=== PATIENT | female | born 1990 | race Caucasian/White ===

== ENCOUNTER 2020-09-27 15:53 | Outpatient (REF) | payer BC, SELFPAY ==
--- NOTE | 2020-09-27 16:04 | XR_ITS ---
EXAMINATION: XR FOOT, RIGHT CLINICAL INFORMATION: Pain right foot. COMPARISON: None. TECHNIQUE: AP, lateral, and oblique views of the right foot. FINDINGS: Bony mineralization is normal. There is no acute or healing fracture, dislocation, or destructive process. No joint narrowing or erosive change. No hallux valgus. Subtalar joint is unremarkable. The retrocalcaneal recess is preserved. XR/XR foot RT min 3V IMPRESSION: Normal right foot.
== END 2020-09-27 15:54 | disposition home or self-care (01) ==
LOC: HO.XRAY 15:53
PROVIDERS: Visit Provider Hospitalist
DX: M79.671 Pain in right foot (principal)
CPT/HCPCS: 73630

== ENCOUNTER 2021-04-09 15:04 | Outpatient (REF) | payer BC, SELFPAY ==
[2021-04-10 00:58] LABS: CT PCR NOT DETECTED (Not Detect.); NG PCR NOT DETECTED (Not Detect.)
[2021-04-10 08:35] LABS: BV Int Neg Control Negative (Negative); BV Int Pos Control Positive (Positive)
== END 2021-04-09 15:05 | disposition home or self-care (01) ==
LOC: HO.LAB 15:04
PROVIDERS: PCP Family Medicine; Visit Provider Advanced Practice Midwife
DX: Z01.419 Encounter for gynecological examination (general) (routine) without abnormal findings (principal); Z11.3 Encounter for screening for infections with a predominantly sexual mode of transmission; Z20.2 Contact with and (suspected) exposure to infections with a predominantly sexual mode of transmission
CPT/HCPCS: 87480; 87491; 87510; 87591; 87660; 88142

== ENCOUNTER 2021-05-01 09:00 | Outpatient (RCR) | payer BC, SELFPAY ==
--- NOTE | 2021-04-04 10:22 | MHC.PT.EP ---
[facility] [employer] Office [place] Office [place] Office [address] [phone] F: [phone] F: [phone] F: [phone] F: [phone] Physical Therapy Plan of Care Date of Evaluation: Date of Surgery: Diagnosis: neck/shoulder/trapezius pain. Assessment: Patient is a 30 year old R handed female who presents with s/s consistent with neck/trap strain/pain. Onset was insidious with no trauma. 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 Patient past medical history is unremarkable. Current impairments include pain, ROM, posture, strength, activity tolerance and functional mobility. Functional limitations include decreased ability to sleep, lift, carry, push, pull, and perform weight bearing activities.. Patient is motivated with good rehab potential. Skilled PT will address impairments and functional limitations in order to achieve goals. 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 Manual therapy to restore motion and function. Therapeutic exercise to improve strength and flexibility. Neuromuscular re-education for posture and balance. Therapeutic activities to return to functional activities of daily living. Electronically signed by: Joseph Nieves PT Please sign and return to therapist. Thank you for your referral.
--- NOTE | 2021-08-14 13:45 | MHC.PT.DC ---
[facility] [place] Office [place] Office [place] Office [address] [place] [address] [address] [phone] F: [phone] F: [phone] F: [phone] F: [phone] Physical Therapy Discharge Report Diagnosis: neck/shoulder/trapezius pain. Date of Surgery: Date of Evaluation: 04/04/21 Date of Discharge: 06/30/21 Treatments to Date: 8 Cancellations to Date: 0 No Shows to Date: 0 Discharge Status: Independent with HEP Discharge Summary: Pt with good ST mechanics with wall pounds, symmetricl. She will return to work on and keep up with HEP independently. We will keep chart open for 30 days then d/c at that time if pt is able to manage independently. Patient is a 30 year old R handed female who presents with s/s consistent with neck/trap strain/pain. Onset was insidious with no trauma. 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 Patient past medical history is unremarkable. Current impairments include pain, ROM, posture, strength, activity tolerance and functional mobility. Functional limitations include decreased ability to sleep, lift, carry, push, pull, and perform weight bearing activities.. Patient is motivated with good rehab potential. Skilled PT will address impairments and functional limitations in order to achieve goals. Electronically signed by: Joseph Nieves, PT Please sign and return to therapist. Thank you for your referral.
== END 2021-08-14 13:46 | disposition home or self-care (01) ==
LOC: HO.PTCHIC 09:00
PROVIDERS: PCP Family Medicine; Visit Provider Family Medicine
DX: S46.811D Strain of other muscles, fascia and tendons at shoulder and upper arm level, right arm, subsequent encounter (principal)
CPT/HCPCS: 97110; 97140; 97161

== ENCOUNTER 2021-08-09 18:19 | Outpatient (REF) | payer BC, SELFPAY ==
[2021-08-09 19:12] LABS: Influenza A PCR NEGATIVE (Negative); Influenza B PCR NEGATIVE (Negative); Resp Syncy Virus RNA Qual PCR NEGATIVE (Negative); SARS COV2 PCR INHOUSE NEGATIVE (Negative)
== END 2021-08-09 18:20 | disposition home or self-care (01) ==
LOC: HO.LNP 18:19
PROVIDERS: Visit Provider Family Medicine
DX: Z20.822 Contact with and (suspected) exposure to COVID-19 (principal); R05.9 Cough, unspecified
CPT/HCPCS: 0241U

== ENCOUNTER 2021-08-16 16:40 | Outpatient (REF) | payer BC, SELFPAY ==
--- NOTE | ~2021-08-16 | XR_ITS ---
EXAMINATION: XR CHEST CLINICAL INFORMATION: Cough. COMPARISON: None TECHNIQUE: 2 views of the chest were obtained. FINDINGS: No significant abnormality is noted involving the heart, lungs, mediastinum, bony thorax or soft tissues. XR/XR chest 2V IMPRESSION: Unremarkable chest examination.
== END 2021-08-16 16:41 | disposition home or self-care (01) ==
LOC: HO.HMGCX 16:40
PROVIDERS: Visit Provider Family Medicine
DX: R05.9 Cough, unspecified (principal)
CPT/HCPCS: 71046

== ENCOUNTER 2021-09-21 07:32 | Outpatient (REF) | payer BC, SELFPAY ==
[2021-09-21 10:59] LABS: MANUAL DIFF FLAG NO
[2021-09-21 11:00] LABS: Basophils Percent Auto 0.4 % (0-2); Eosinophils Absolute Auto 0.1 X10*3/uL (0.0-0.4); Eosinophils Percent Auto 1.2 % (0-4); Hemoglobin 13.3 g/dl (12.0-16.0); Imm Gran Abs Auto 0.01 X10*3/uL (0.00-0.03); Imm Gran Pct Auto 0.1 % (0.0-0.4); Lymphocytes Absolute Auto 2.7 X10*3/uL (1.2-4.9); Lymphocytes Percent Auto 40.7 % (20-40); Mean Corpuscular HGB Conc 34.1 g/dl (31.0-35.0); Mean Corpuscular Hemoglobin 31.4 pg (27.0-33.0); Mean Corpuscular Volume 92.2 fL (80.0-98.0); Mean Platelet Volume 10.9 fL (9.4-12.3); Monocytes Absolute Auto 0.4 X10*3/uL (0.1-1.2); Monocytes Percent Auto 5.5 % (2-11); Neutrophils Absolute Auto 3.5 x10*3/uL (2.0-8.3); Neutrophils Percent Auto 52.1 % (45-73); Platelet Count 208 X10*3/uL (160-400); Red Blood Count 4.23 X10*6/uL (4.20-5.50); Red Cell Distribution Width 10.8 % (11.0-16.0); White Blood Count 6.7 X10*3/uL (4.8-10.8)
[2021-09-21 11:31] LABS: Alanine Aminotransferase 20 U/L (0-31); Alkaline Phosphatase 71 U/L (39-117); Anion Gap 10 (12-20); Aspartate Amino Transferase 17 U/L (5-31); Bilirubin Total 0.9 mg/dL (0.0-1.0); Blood Urea Nitrogen 12 mg/dL (9-16); Calcium 9.1 mg/dL (8.4-10.2); Carbon Dioxide 25 mmol/L (22-29); Chloride 108 mmol/L (96-108); Cholesterol 129 mg/dL; Estimated Glomerular Filt Rate > 60; Glucose Fasting 82 mg/dL (60-99); HDL Cholesterol 47 mg/dL; LDL Cholesterol Calculated 68 mg/dl; Potassium 3.8 mmol/L (3.3-5.1); Sodium 139 mmol/L (135-145); Total Protein 6.4 g/dL (6.5-8.0); Triglycerides 70 mg/dL
[2021-09-21 11:54] LABS: TSH reflex Free T4 1.52 uIU/mL (0.32-4.0)
== END 2021-09-21 07:33 | disposition home or self-care (01) ==
LOC: HO.WFDLDS 07:32
PROVIDERS: Visit Provider Family Medicine
DX: Z00.00 Encounter for general adult medical examination without abnormal findings (principal)
CPT/HCPCS: 36415; 80053; 80061; 84443; 85025

== ENCOUNTER 2022-11-08 07:37 | Outpatient (REF) | payer BC, SELFPAY ==
[2022-11-08 11:24] LABS: MANUAL DIFF FLAG NO
[2022-11-08 11:33] LABS: Basophils Absolute Auto 0.1 X10*3/uL (0.0-0.2); Eosinophils Absolute Auto 0.3 X10*3/uL (0.0-0.4); Eosinophils Percent Auto 3.5 % (0-4); Hematocrit 40.1 % (37.0-47.0); Hemoglobin 13.6 g/dl (12.0-16.0); Imm Gran Abs Auto 0.01 X10*3/uL (0.00-0.03); Imm Gran Pct Auto 0.1 % (0.0-0.4); Lymphocytes Absolute Auto 2.8 X10*3/uL (1.2-4.9); Lymphocytes Percent Auto 36.9 % (20-40); Mean Corpuscular HGB Conc 33.9 g/dl (31.0-35.0); Mean Corpuscular Hemoglobin 31.6 pg (27.0-33.0); Mean Platelet Volume 10.8 fL (9.4-12.3); Monocytes Absolute Auto 0.5 X10*3/uL (0.1-1.2); Monocytes Percent Auto 6.7 % (2-11); Neutrophils Percent Auto 51.8 % (45-73); Platelet Count 228 X10*3/uL (160-400); Red Blood Count 4.31 X10*6/uL (4.20-5.50); Red Cell Distribution Width 10.8 % (11.0-16.0); White Blood Count 7.7 X10*3/uL (4.8-10.8)
[2022-11-08 11:57] LABS: Alanine Aminotransferase 23 U/L (0-31); Alkaline Phosphatase 85 U/L (39-117); Anion Gap 10 (12-20); Aspartate Amino Transferase 19 U/L (5-31); Bilirubin Total 1.2 mg/dL (0.0-1.0); Blood Urea Nitrogen 14 mg/dL (9-16); Calcium 9.1 mg/dL (8.4-10.2); Carbon Dioxide 27 mmol/L (22-29); Chloride 107 mmol/L (96-108); Cholesterol 176 mg/dL; Estimated Glomerular Filt Rate > 60; Glucose Fasting 82 mg/dL (60-99); HDL Cholesterol 54 mg/dL; LDL Cholesterol Calculated 108 mg/dl; Potassium 4.2 mmol/L (3.3-5.1); Sodium 140 mmol/L (135-145); Total Protein 6.4 g/dL (6.5-8.0); Triglycerides 73 mg/dL
[2022-11-08 12:14] LABS: TSH reflex Free T4 1.84 uIU/mL (0.32-4.0)
[2022-11-08 12:37] LABS: Appearance Urine Clear; Color Urine Yellow; Glucose Urine UA Negative (Negative); Leukocyte Esterase Urine Negative (Negative); Nitrite Urine Negative (Negative); PH 5.5 (5.0-9.0); UMIC TRIGGER UA YES; Urine Blood Moderate (2+) (Negative); Urine Ketones Negative (Negative); Urine Protein Negative (Neg-Trace)
[2022-11-08 13:07] LABS: Bacteria Urine None Seen (None Seen); Hyaline Casts Urine 0-2 /LPF (0-2); Squamous Epithelial Cell Urine 0-2 /HPF (0-2); WBC Urine 0-5 /HPF (0-5)
== END 2022-11-08 07:38 | disposition home or self-care (01) ==
LOC: HO.WFDLDS 07:37
PROVIDERS: Visit Provider Family Medicine
DX: Z00.00 Encounter for general adult medical examination without abnormal findings (principal)
CPT/HCPCS: 36415; 80053; 80061; 81001; 81003; 84443; 85025

== ENCOUNTER → 2023-03-10 15:03 | Outpatient (BNVA) | payer BC, SELFPAY | PROVIDERS: PCP Family Medicine; Visit Provider Advanced Practice Midwife | DX: N92.6 Irregular menstruation, unspecified (principal); Z31.69 Encounter for other general counseling and advice on procreation | CPT/HCPCS: 81025 ==

== ENCOUNTER → 2023-08-19 09:23 | Outpatient (BNVA) | payer OTHER, SELFPAY | PROVIDERS: PCP Family Medicine; Visit Provider Physician Assistant Medical | DX: S43.401A Unspecified sprain of right shoulder joint, initial encounter (principal); W01.0XXA Fall on same level from slipping, tripping and stumbling without subsequent striking against object, initial encounter | CPT/HCPCS: 99203 ==

== ENCOUNTER → 2023-08-27 14:34 | Outpatient (BNVA) | payer OTHER, SELFPAY | PROVIDERS: PCP Family Medicine; Visit Provider Physician Assistant Medical | DX: S43.401A Unspecified sprain of right shoulder joint, initial encounter (principal); W01.0XXA Fall on same level from slipping, tripping and stumbling without subsequent striking against object, initial encounter | CPT/HCPCS: 99213 ==

== ENCOUNTER → 2023-09-15 15:16 | Outpatient (BNVA) | payer OTHER, SELFPAY | PROVIDERS: PCP Family Medicine; Visit Provider Physician Assistant Medical | DX: S43.401D Unspecified sprain of right shoulder joint, subsequent encounter (principal); W01.0XXD Fall on same level from slipping, tripping and stumbling without subsequent striking against object, subsequent encounter | CPT/HCPCS: 99213 ==

== ENCOUNTER → 2023-09-29 15:03 | Outpatient (BNVA) | payer OTHER, SELFPAY | PROVIDERS: PCP Family Medicine; Visit Provider Physician Assistant Medical | DX: S43.401D Unspecified sprain of right shoulder joint, subsequent encounter (principal); W01.0XXA Fall on same level from slipping, tripping and stumbling without subsequent striking against object, initial encounter | CPT/HCPCS: 99213 ==

== ENCOUNTER 2023-10-10 19:36 | Outpatient (REF) | payer OTHER, SELFPAY ==
--- NOTE | ~2023-10-10 | MR_ITS ---
EXAMINATION: MR SHOULDER WITHOUT CONTRAST, RIGHT CLINICAL INFORMATION: Right shoulder pain, swelling, limited range of motion following a fall on 08/18/2023. COMPARISON: None available. TECHNIQUE: MRI of the shoulder without contrast was performed on a high-field scanner. FINDINGS: ROTATOR CUFF: Intact. No muscle atrophy or fatty infiltration. BICEPS: Trace fluid within the proximal long head biceps tendon sheath which could represent normal variation versus minimal tenosynovitis. No transverse tendon tear or tendon retraction. CORACOACROMIAL ARCH: The undersurface of the acromion is flat with no subacromial spur. Minimal acromioclavicular arthrosis. LABRUM/CAPSULE: No labral tear. Intact joint capsule. GLENOHUMERAL JOINT/MARROW: Unremarkable. MR/MR shoulder RT wo con IMPRESSION: 1. Trace fluid within the proximal long head biceps tendon sheath which could represent normal variation versus minimal tenosynovitis. No transverse tendon tear or tendon retraction. 2. Minimal acromioclavicular arthrosis. 3. No rotator cuff or labral tear.
== END 2023-10-10 19:37 | disposition home or self-care (01) ==
LOC: HO.MRI 19:36
PROVIDERS: PCP Family Medicine; Visit Provider Internal Medicine
DX: M25.511 Pain in right shoulder (principal)
CPT/HCPCS: 73221

== ENCOUNTER 2023-10-16 15:00 | Outpatient (RCR) | payer OTHER, SELFPAY ==
--- NOTE | 2023-09-09 15:52 | MHC.PT.EP ---
[facility] [place] Office [place] Office [place] Office [address] [phone] F: [phone] F: [phone] F: [phone] F: [phone] Physical Therapy Plan of Care Date of Evaluation: 09/09/23 Date of Surgery: n/a Diagnosis: R shoulder sprain Assessment: Patient is a 33 year old female presenting to PT with complaints of pain in her R shoulder. Pt reports onset of pain began 08/18/2023 due to falling on her arm at work. She presents today with impairments in pain, ROM, strength, posture. 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 Clinical presentation today is most consistent with signs and sx associated with R shoulder pain and pt will benefit from skilled PT 2 week x 4 weeks to address the following problems and impairments noted upon evaluation: pain, ROM, strength, posture. These problems limit the patient with the following functional activities: putting on jacket, reaching, lifting, work, ADLs. The prescribed treatment plan of care is medically necessary. Co-morbidities of none were identified and taken into considerations of plan of care. Pt was educated on HEP, role of PT, prognosis, POC. Frequency and Duration: The patient will be seen 2 x week x 4 weeks Short Term Goals: Pt will demonstrate full pain free ROM in 2 weeks. Pt will demonstrate improved MMT strength by 1/3 grade in 2 weeks. Pt will demonstrate improved postural awareness by sitting with biomechanically correct posture without cues throughout session to improve overall postural function in 2 weeks. Stage Director Goals: Pt will demonstrate improved SPADI score by 13 points in 4 weeks for improved functional mobility. Pt will demonstrate ability to put on her jacket and dress with min to no pain in 4 weeks for improved ability to complete ADLs. Pt will demonstrate ability to reach and lift with min to no pain in 4 weeks for return to PLOF at home and work. Treatment Plan: Modalities to reduce pain, spasms and effusion. Manual therapy to restore motion and function. Therapeutic exercise to improve strength and flexibility. Neuromuscular re-education for posture and balance. Therapeutic activities to return to functional activities of daily living. Electronically signed by: Suzy Castellon, PT, DPT, ATC Please sign and return to therapist. Thank you for your referral.
--- NOTE | 2023-11-14 07:38 | MHC.PT.DC ---
[facility] [place] Office [place] Office [place] Office [address] [phone] F: [phone] F: [phone] F: [phone] F: [phone] Physical Therapy Discharge Report Diagnosis: R shoulder sprain Date of Surgery: n/a Date of Evaluation: 09/09/23 Date of Discharge: 11/14/23 Treatments to Date: 8 Cancellations to Date: 3 No Shows to Date: 1 Discharge Status: Discharge Summary: Pt has not attended skilled PT in >30 days and therefore to be d/c per policy. Electronically signed by: Suzy Castellon, PT, DPT, ATC Please sign and return to therapist. Thank you for your referral.
== END 2023-11-14 07:38 | disposition home or self-care (01) ==
LOC: HO.PTCHIC 15:00
PROVIDERS: PCP Family Medicine; Visit Provider Physician Assistant Medical
DX: S43.401D Unspecified sprain of right shoulder joint, subsequent encounter (principal)
CPT/HCPCS: 97110; 97140; 97161

== ENCOUNTER → 2023-10-20 15:23 | Outpatient (BNVA) | payer OTHER, SELFPAY | PROVIDERS: PCP Family Medicine; Visit Provider Physician Assistant Medical | DX: M75.21 Bicipital tendinitis, right shoulder (principal) | CPT/HCPCS: 99213 ==

== ENCOUNTER 2023-11-19 13:23 | Outpatient (REF) | payer BC, SELFPAY ==
--- NOTE | ~2023-11-19 | US_ITS ---
EXAMINATION: US OBSTETRICAL ULTRASOUND CLINICAL INFORMATION: Irregular masses noted CBD: 7 available. COMPARISON: None available. LMP: 09/17/2023. Gestational age by maternal dates is 9 weeks and 0 days. Estimated date of delivery by maternal dates is 1016. TECHNIQUE: Transabdominal and transvaginal imaging of pelvis is performed. FINDINGS: The uterus is anteverted with no intrauterine gestational sac, pole or yolk sac seen. The endometrial thickness measures 0.9 cm. The right ovary measures 3.4 x 1.9 x 2.0 cm and appears unremarkable. Left ovary measures 2.9 x 1.9 x 1.8 cm and appears unremarkable. There is no free fluid. No adnexal mass seen. US/US OB pelvic and transvaginal IMPRESSION: No intrauterine gestational sac, pole or yolk sac seen. The uterus is anteverted with slightly thickened endometrium Ovaries are unremarkable. There is no adnexal mass seen.
[2023-11-19 14:40] LABS: HCG Quantitative 75 mIU/mL
== END 2023-11-19 13:24 | disposition home or self-care (01) ==
LOC: HO.US 13:23
PROVIDERS: PCP Family Medicine; Visit Provider Advanced Practice Midwife
DX: Z34.91 Encounter for supervision of normal pregnancy, unspecified, first trimester (principal); Z3A.09 9 weeks gestation of pregnancy
CPT/HCPCS: 36415; 76801; 76817; 84702

== ENCOUNTER 2023-11-21 10:46 | Outpatient (REF) | payer BC, SELFPAY ==
[2023-11-21 12:34] LABS: HCG Quantitative 56 mIU/mL
== END 2023-11-21 10:47 | disposition home or self-care (01) ==
LOC: HO.LAB 10:46
PROVIDERS: PCP Family Medicine; Visit Provider Advanced Practice Midwife
DX: Z34.90 Encounter for supervision of normal pregnancy, unspecified, unspecified trimester (principal)
CPT/HCPCS: 36415; 84702; 86850; 86900

== ENCOUNTER 2023-11-21 11:56 | Outpatient (AMB) | payer BC, SELFPAY ==
[2023-11-21 12:03] VITALS: BP 104/64; BMI 26.2
--- NOTE | 2023-11-21 12:03 | A.OFFVIS_ITS ---
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 Her last menstrual period was September 17 she has a history of irregular menses and had started care at [facility] and had an HSG but then [facility] reproductive endocrinology has ceased as an entity according to the patient and she was referred to [facility] and has an appointment in January. Patient is here for follow-up from some follow-up labs that were done yesterday the ultrasound that was done on the showed nothing in the uterus. Her blood type is O-positive the hCG is not yet available. Patient's has arrived and will join the visit. Patient started bleeding like a Last night and she is aware that this is most likely a very or very early miscarriage. The end of the visit the hCG became available it is now 56 down from 75 on 11/19/2019 4 which is consistent with a nonviable ./miscarriage. Discussed findings and patients experience with patient and her he wants to know when they can try again discussed waiting till all the bleeding is gone and waiting till there signs and symptoms of ovulation in the next cycle. She says she does 0 P Lety's and they always show some positive finding no matter what day it is so she has bought another product to help her determine when she has fertile mucus. Reviewed danger signs and when to call of an ectopic which she does not have symptoms of. She did have cramping when she was bleeding more heavily last night but it was consistentw cramping. Follow-up hCG ordered for 1 week. patient was happy not to schedule every 2 day quants to follow toto 0 as that would be torture, she will call if she does have any severe pain or bleeding and seek emergency care. . 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 Current occupational exposures/hazards: No Gender identity: Additional gender category/(or other), please specify Cognitive needs: No Hearing needs: No Vision needs: No Female Reproductive History Menstrual Age of Menarche: 13 control method: none Date of last pap smear: 04/10/21 (negative) Physical Exam Vital Signs: Last Vital Signs BP 104/64 11/21/23 12:03 BMI result Body Mass Index 26.2 Results Reviewed Results Reviewed: [place] [address] Ultrasound Report Signed Patient: Lizette Fuentes MR#: [id number] : 1990 Acct:[id number] Age/Sex: 33 / F ADM Date: 11/19/23 Loc: HO.US Attending Dr: Pippa Norton CNM Ordering Physician: Pippa Norton CNM Date of Service: 11/19/23 Procedure(s): US OB pelvic and transvaginal Accession Number(s): [id number] cc: Cole Mata MD; Pippa Norton CNM~ EXAMINATION: US OBSTETRICAL ULTRASOUND CLINICAL INFORMATION: Irregular masses noted CBD: 7 available. COMPARISON: None available. LMP: 09/17/2023. Gestational age by maternal dates is 9 weeks and 0 days. Estimated date of delivery by maternal dates is 1016. TECHNIQUE: Transabdominal and transvaginal imaging of pelvis is performed. FINDINGS: The uterus is anteverted with no intrauterine gestational sac, pole or yolk sac seen. The endometrial thickness measures 0.9 cm. The right ovary measures 3.4 x 1.9 x 2.0 cm and appears unremarkable. Left ovary measures 2.9 x 1.9 x 1.8 cm and appears unremarkable. There is no free fluid. No adnexal mass seen. US/US OB pelvic and transvaginal IMPRESSION: No intrauterine gestational sac, pole or yolk sac seen. The uterus is anteverted with slightly thickened endometrium Ovaries are unremarkable. There is no adnexal mass seen. Dictated By: Tomasz Danielle MD Signed By: <Electronically signed by Tomasz Danielle MD in OV> 11/19/23 1516 DD/ 1406 Assessment & Plan Assessment & Plan (1) Early stage of : Code(s): Z34.90 - Encounter for supervision of normal , unspecified, unspecified trimester (2) Menstrual periods irregular: Code(s): N92.6 - Irregular menstruation, unspecified (3) Miscarriage: Code(s): O03.9 - Complete or unspecified spontaneous without complication Plan Patient is here as a follow-up from a test that w positive at home and a urine home several times followed by some cramping and spotting. Her last menstrual period was September 17 she has a history of irregular menses and had started care at [facility] and had an HSG but then [facility] reproductive endocrinology has ceased as an entity according to the patient and she was referred to [facility] and has an appointment in January. Patient is here for follow-up from some follow-up labs that were done yesterday the ultrasound that was done on the showed nothing in the uterus. Her blood type is O-positive the hCG is not yet available. Patient's has arrived and will join the visit. Patient started bleeding like a Last night and she is aware that this is most likely a very or very early miscarriage. The end of the visit the hCG became available it is now 56 down from 75 on 11/19/2019 4 which is consistent with a nonviable ./miscarriage. Discussed findings and patients experience with patient and her he wants to know when they can try again discussed waiting till all the bleeding is gone and waiting till there signs and symptoms of ovulation in the next cycle. She says she does 0 P Lety's and they always show some positive finding no matter what day it is so she has bought another product to help her determine when she has fertile mucus. Reviewed danger signs and when to call of an ectopic which she does not have symptoms of. She did have cramping when she was bleeding more heavily last night but it was consistentw cramping. Follow-up hCG ordered for 1 week. patient was happy not to schedule every 2 day quants to follow toto 0 as that would be torture, she will call if she does have any severe pain or bleeding and seek emergency care. . Orders: Orders HCG Quantitative 7 Days N92.6 - Irregular menstruation, unspecified, O03.9 - Complete or unspecified spontaneous without complication, Z34.90 - Encounter for supervision of normal , unspecified, unspecified trimester Coding Level of Care Code Est Pt Level 3 (47256) Diagnoses Early stage of Z34.90 Menstrual periods irregular N92.6 Miscarriage O03.9
== END 2023-11-21 12:41 | disposition home or self-care (01) ==
LOC: HO.HWSM 11:56
PROVIDERS: PCP Family Medicine; Visit Provider Advanced Practice Midwife
DX: O03.9 Complete or unspecified spontaneous abortion without complication (principal)
CPT/HCPCS: 99213

== ENCOUNTER 2023-11-28 16:41 | Outpatient (REF) | payer BC, SELFPAY ==
[2023-11-28 18:47] LABS: HCG Quantitative 77 mIU/mL
== END 2023-11-28 16:42 | disposition home or self-care (01) ==
LOC: HO.LAB 16:41
PROVIDERS: PCP Family Medicine; Visit Provider Advanced Practice Midwife
DX: Z34.90 Encounter for supervision of normal pregnancy, unspecified, unspecified trimester (principal)
CPT/HCPCS: 36415; 84702

== ENCOUNTER 2024-02-17 15:41 | Outpatient (AMB) | payer BC, SELFPAY ==
--- NOTE | 2024-02-17 16:11 | A.OFFPC_ITS ---
Vital Signs 02/17/24 16:12 Height 5 ft 3 in Weight 148 lb BMI 26.2 BP 100/60 Blood Pressure Location Lt brachial Position Sitting Pulse 66 Pulse Source Pulse Oximeter Pulse Oximetry (%) 99 Oxygen Delivery Method Room Air Intake Visit Reasons: f/u anxiety Intake Note: Patient is here for follow up on anxiety. Patient would like to talk about safety of Citalopram and getting . Is last menstrual period known: Yes Last menstrual period: 01/31/24 Allergies bee venom protein (honey bee) Allergy (Intermediate, Verified 02/17/24 16:14) dizziness, redness sulfamethoxazole [From Bactrim] Adverse Reaction (Mild, Verified 02/17/24 16:14) Swelling trimethoprim [From Bactrim] Adverse Reaction (Mild, Verified 02/17/24 16:14) Swelling Medication List - Last Reconciled 02/17/24 by Cole Mata MD citalopram 20 mg PO DAILY 90 days Tobacco use date assessed: 11/14/22 Dental Screening Dental Screen Date: 02/17/24 Did you have a dental visit in the last 12 months?: Yes Did you have a dental problem in the last 6 months where you did not have access to dental care?: No Was dental information given to patient?: No (Patient looking to get a new dentist on her own.) HPI f/u anxiety HPI Details 33 y/o female presents to f/u anxiety. Had recently seen [facility] [facility] for early stage in November. She is on citalopram 20mg daily. 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 1. Little interest or pleasure in doing things: not at all 2. Feeling down, depressed, or hopeless: not at all 3. Trouble falling or staying asleep, or sleeping too much: not at all 4. Feeling tired or having little energy: not at all 5. Poor appetite or overeating: not at all 6. Feeling bad about yourself - or that you are a failure or have let yourself or your family down: not at all 7. Trouble concentrating on things, such as reading the newspaper or watching television: not at all 8. Moving or speaking so slowly that other people could have noticed. Or the opposite - being so fidgety or restless that you have been moving around a lot more than usual: not at all 9. Thoughts that you would be better off or of hurting yourself in some way: not at all Total score: 0 Depression Screening Interpretation: Negative Depression Screening Done: Yes 82962 - PHQ-9 Billing: Yes Source: Developed by Drs. Elkin Edwards, Aranza Fong, Kuldeep Ford and colleagues, with an educational raysa from [email or web address] Thrive Questionnaire Date Thrive assessed: 10/09/22 SID-7 AMB Questionnaire SID-7 Date SID - 7 assessed: 02/17/24 Feeling nervous, anxious, or on edge: 1 = Several days Not being able to stop or control worryin = Several days Worrying too much about different things: 1 = Several days Trouble relaxin = Not at all Being so restless that it is hard to sit still: 0 = Not at all Becoming easily annoyed or irritable: 1 = Several days Feeling afraid as if something awful might happen: 0 = Not at all Total SID-7 score (0-4 normal; 5-9 mild; 10-14 moderate; 15-21 severe): 4 Source: Developed by Drs. Elkin Edwards, Aranza Fong, Kuldeep Ford and colleagues, with an educational raysa from [email or web address]. SID-7 Assessment Billing SID-7 Assessment Tool: SID-7 Assessment 90684 Review of Systems Const Denies chills, Denies fatigue, Denies fever(s), Denies headache(s) and Denies weakness ENT Denies dizziness and Denies headache(s) Card Denies chest pain, Denies lightheadedness, Denies dyspnea and Denies other (Palpitations) Resp Denies cough, Denies dyspnea, Denies wheezing and Denies other ( shortness of breath) Musc Denies numbness and Denies tingling Neuro Denies dizziness, Denies headache(s), Denies numbness, Denies tingling, Denies paresthesias and Denies weakness Psych Denies anxiety and Denies depression Endo Denies fatigue Aller/Immun Denies wheezing Physical exam (Primary Care) Vital Signs: Last Vital Signs Pulse 66 02/17/24 16:12 BP 100/60 02/17/24 16:12 Pulse Ox 99 02/17/24 16:12 Oxygen Delivery Method Room Air 02/17/24 16:12 BMI result Body Mass Index 26.2 Tobacco/Smoking Status: Tobacco use Status Tobacco use date assessed 11/14/22 02/17/24 16:12 Patient Tobacco Use Status Never used Tobacco 02/17/24 16:12 e-Cigarette/Vaping Use Never Used 02/17/24 16:12 PHQ-9: PHQ-9 Score PHQ-9: Total score 0 02/17/24 16:29 Depression Screening Interpretation: Negative Thrive Assessment: Date of Thrive Assessment Date Thrive assessed 10/09/22 02/17/24 16:12 Const General: no acute distress and well developed Nutritional Appearance: well nourished Orientation/consciousness: patient oriented x3 HENMT Head: Yes normocephalic and Yes atraumatic Eyes General: appearance normal, both eyes and all related structures Pupils: Equal, round and reactive pupils present EOM: EOMs intact bilaterally Resp Effort & Inspection: normal respiratory effort Auscultation: clear to auscultation bilaterally Cardio Rate: regular rate Rhythm: regular rhythm Heart sounds: S1 normal heart sound present, S2 normal heart sound present, no gallops, no murmurs and no rubs Neuro General: patient oriented x3 and gait normal Cranial nerves: Yes Equal, round and reactive pupils present Psych Affect: normal affect Assessment and Plan Assessment & Plan (1) Anxiety: Code(s): F41.9 - Anxiety disorder, unspecified Plan: Ongoing?anxiety?and?patient?is?on?citalopram?and?fairly?well?controlled Had?a?discussion?regarding??on?SSRI?medications. SSRI?medications?are?not?consider? perfectly?harmless?in?every?situation?while?.??However?these?should?be?c onsidered?as?risk?versus?benefit?situation?in?each?patient. Discussion?with?patient?regarding?her?risks?and?benefits?and ?she?opts?to?continue?an?SSRI.??There?may?be?more?data?on?Zoloft?than?citalopram ?which?has?a?longer?history?of?use?in?. Will?switch?her?over?to?Zoloft We?also?discussed?that?it?may?be?in?her? best?interest?to?wean?off?of?this?medication?in?the?3rd?trimester?or?prior?to?a? few?weeks?before?delivery. Advised?she?let?her?OBGYN?and?MFM?specialists?know?that?she?is?on?Zoloft Will?follow-up?at? her?next?visit?in?a?couple?of?months.??She?will?call?me?if?control?is?not?compar able?on?Zoloft?or?if?she?is?having?adverse?effects. (2) Miscarriage: Code(s): O03.9 - Complete or unspecified spontaneous without complication Plan: Recent?miscarriage?in?November. (3) Family planning: Code(s): Z30.09 - Encounter for other general counseling and advice on contraception Plan: Working?on?getting??again. Follow-up?with?OBGYN?and?MFM Orders: Orders Lipid Panel Today Z00.00 - Encounter for general adult medical examination without abnormal findings TSH reflex Free T4 Today Z00.00 - Encounter for general adult medical examination without abnormal findings UA and rflx microscopic Today Z00.00 - Encounter for general adult medical examination without abnormal findings Comprehensive Sunflower. Panel Fast Today Z00.00 - Encounter for general adult medical examination without abnormal findings Complete Blood Count Auto Diff Today Z00.00 - Encounter for general adult medical examination without abnormal findings Microalbumin, Random (w Creat) Today I10 - Essential (primary) hypertension Medications: New sertraline (Zoloft) 50 mg PO DAILY 90 days 90 tabs 1RF Discontinued citalopram Discontinued Reason: Doctor's Order 20 mg PO DAILY 90 days 90 tabs 1RF Coding Level of Care Code Est Pt Level 3 (56573) Diagnoses Anxiety F41.9 Miscarriage O03.9 Family planning Z30.09 Additional Codes SID-7 Assessment Billing - SID-7 Assessment Tool: SID-7 Assessment 43783 ([id number])
[2024-02-17 16:12] VITALS: BP 100/60; PULSE 66; O2SAT 99; BMI 26.2
== END 2024-02-17 16:47 | disposition home or self-care (01) ==
PROVIDERS: PCP Family Medicine; Visit Provider Family Medicine
DX: F41.9 Anxiety disorder, unspecified (principal); O03.9 Complete or unspecified spontaneous abortion without complication; Z30.09 Encounter for other general counseling and advice on contraception
CPT/HCPCS: 99214

== ENCOUNTER 2025-03-31 09:25 | Outpatient (AMB) | payer OTHER, SELFPAY ==
--- NOTE | 2025-03-31 09:26 | A.OFFPC_ITS ---
Vital Signs 03/31/25 09:31 Height 5 ft 5 in Weight 146 lb 2 oz BMI 24.3 BP 98/66 Blood Pressure Location Lt brachial Position Sitting Respiration 12 Pulse 72 Pulse Source Pulse Oximeter Temp 97.2 F Temp Source Oral Pulse Oximetry (%) 99 Oxygen Delivery Method Room Air Intake Visit Reasons: Physical / Dr. Mata's pt. 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 Allergies bee venom protein (honey bee) Allergy (Intermediate, Verified 03/31/25 09:36) dizziness, redness sulfamethoxazole (From Bactrim) Adverse Reaction (Mild, Verified 03/31/25 09:36) Swelling trimethoprim (From Bactrim) Adverse Reaction (Mild, Verified 03/31/25 09:36) Swelling Medication List - Last Reconciled 03/31/25 by MILA Caldwell No Known Home Meds Tobacco use date assessed: 03/31/25 Dental Screening Dental Screen Date: 03/31/25 Did you have a dental visit in the last 12 months?: No Did you have a dental problem in the last 6 months where you did not have access to dental care?: No Was dental information given to patient?: Patient has dentist HPI HPI Comments History of Present Illness Details 34 y/o F with hx of anxiety & depression , hx of miscarriage, IBS 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 - Medical history includes IBS, anxiety, depression, hx of miscarriage. - Gave to healthy son 4 months ago . - Previous complicated labor, no C-secti on was required. - Blood clots occurred post-delivery; nj john intervention resolved the issue. - Sertraline initiated prior to pregnanc y but did not start taking; currently no antidepressants used, reporting well-being. - is ongoing without compl ications; Tdap vaccinated during preg sandra. - Plans to concieve immediatley. on Pren atal. Active w/ [facility] - Patient is undergoing pelvic floor th erapy for pain during sex. - Has moles grew during preg would l mima these evaled, specific hairline L scalp - EpiPen needed for bee sting allergies Review of Systems - Constitutional: Denies current medicat ions - Eyes: Wears eyeglasses; no vision conc erns - Dermatologic: Reports changes in moles during - Respiratory: No respiratory issues not ed - Gastrointestinal: No concerns reported regarding digestion - Genitourinary: Denied return of menstr uation while - Musculoskeletal: No joint or bone issu es at present - Neurological: No current mood disturba nces - Psychiatric: Mood reported as good - Allergy/Immunology: Reports bee sting allergy Physical Exam General: Well developed, well nourished, in no acute distress. Appears stated age. Head: Normocephalic, atraumatic. Eyes: Pupils are equal, round and reactive to light and accommodation. Conjunctivae are clear. Vision grossly normal. Ears: TMs clear AU, EACS WNL Nose: Patent, without discharge. Some allergies noted. Neck: Supple, no adenopathy or thyromegaly. No pain or tenderness noted. Breast: Edu on SBE. Patient is with no current complications. Lungs: Clear to auscultation bilaterally. No rales, rhonchi or wheeze noted. Good air flow in all john. Heart: Regular rate and rhythm. No murmurs, click, rubs or gallops are noted. Abdomen: Bowel sounds present in all quadrants. The abdomen is soft, nontender, with no masses or organomegaly noted. No hernias are noted. : Deferred. 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 Pulses: Peripheral pulses are equal and palpable bilaterally. Extremities: No clubbing, cyanosis nor edema is noted. Neurologic: Gait and station normal. Cranial Nerves 2-12 intact. Motor strength grossly symmetrical and intact. No sensory loss. Balance normal. Skin: No rashes, ulcers, or lesions noted. Turgor is good. Skin color is good. Hair and nails are without abnormalities. Noted skin tag in hairline, referral to dermatology made. Psych: Normal eye contact, affect and mood appropriate, and normal interactions. Patient is alert and appropriate to context. Mood is good, patient feels great. Smiling and engaging w/ son. Discussion Notes During the visit, I discussed the patient's past medical history of IBS, anxiety and depression, We reviewed her complicated labor and the resolution of blood clots. The patient shared her transition from citalopram to sertraline, with cessation of medications and a stable mood reported. was going well, and I reminded her of receiving the Tdap vaccine during her last . A dermatology referral was provided for benign mole evaluations. We addressed allergies, providing an EpiPen renewal. I recommended a screening for thyroid disease due to vulnerability and counseling on potential anemia. We discussed utilizing labs post-visit, with consent to cc results to [facility]. No new family history issues were reported. We reviewed the importance of regular follow-ups and maintaining wellness checks yearly. Assessment and Plan 1. Complete Physical Examination - Labs for thyroid and anemia screening. - Results to be shared with [facility]. 2. Irritable Bowel Syndrome - No active symptoms. - Maintain current management approach. 3. Anxiety and Depression - Mood stable off medication. - Advocacy for symptom monitoring. 4. Complicated Labor and Clot s - History noted; no current intervention required. 5. Dermatologic Concerns - Dermatology referral for moles. 6. Allergy Management - EpiPen prescribed for bee sting allerg ies. Patient Instructions - Carry your EpiPen at all times for all ergies. - Follow up with dermatology as schedule d. - Return for lab work today or soon ther eafter. - Use the patient portal to review lab r esults and other updates. - Come back for yearly physical exams or sooner if health changes occur. Consent Patient was informed and verbally consented to the use of an ambient scribe for clinic note documentation during this visit. 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 1. Little interest or pleasure in doing things: not at all 2. Feeling down, depressed, or hopeless: not at all 3. Trouble falling or staying asleep, or sleeping too much: not at all 4. Feeling tired or having little energy: several days 5. Poor appetite or overeating: not at all 6. Feeling bad about yourself - or that you are a failure or have let yourself or your family down: not at all 7. Trouble concentrating on things, such as reading the newspaper or watching television: not at all 8. Moving or speaking so slowly that other people could have noticed. Or the opposite - being so fidgety or restless that you have been moving around a lot more than usual: not at all 9. Thoughts that you would be better off or of hurting yourself in some way: not at all Total score: 1 Depression Screening Interpretation: Negative Depression Screening Done: Yes 18326 - PHQ-9 Billing: Yes Source: Developed by Drs. Elkin Edwards, Aranza Fong, Kuldeep Ford and colleagues, with an educational raysa from [employer]. Thrive Questionnaire Date Thrive assessed: 03/31/25 I am a: Patient What is your living situation today?: I have a steady place to live Within the past 12 months, did the food you bought not last and you didn't have the money to get more?: Never true Within the past 12 months, did you worry whether your food would run out before you got money to buy more?: Never true Do you have trouble paying for medicines?: No Do you have trouble getting transportation to medical appointments?: No Do you have trouble paying your heating and electricity bill?: No Do you have trouble taking care of your child, family member or friend?: No Do you have trouble with day-to-day activities such as bathing, preparing meals, shopping, managing finances, etc.?: No Are you currently unemployed and looking for a job?: No Are you interested in more education?: Yes Please select the resources that you would like help with: None Currently or been in a relationship where the following occur: No concerns reported THRIVE Score: 0 AUDIT C Alcohol Use Questionnaire (AUDIT-C) 1. How often do you have a drink containing alcohol?: Never 3. How often do you have six or more drinks on one occasion?: Never Total Score: 0 Score Reviewed/Action Taken: Yes SID-7 AMB Questionnaire SID-7 Date SID - 7 assessed: 03/31/25 Feeling nervous, anxious, or on edge: 0 = Not at all Not being able to stop or control worryin = Several days Worrying too much about different things: 0 = Not at all Trouble relaxin = Not at all Being so restless that it is hard to sit still: 0 = Not at all Becoming easily annoyed or irritable: 0 = Not at all Feeling afraid as if something awful might happen: 0 = Not at all Total SID-7 score (0-4 normal; 5-9 mild; 10-14 moderate; 15-21 severe): 1 Source: Developed by Drs. Elkin Edwards, Aranza Fong, Kuldeep Ford and colleagues, with an educational raysa from [employer]. SID-7 Assessment Billing SID-7 Assessment Tool: SID-7 Assessment 01873 Physical exam (Primary Care) Vital Signs: Last Vital Signs Temp 97.2 F 03/31/25 09:31 Pulse 72 03/31/25 09:31 Resp 12 03/31/25 09:31 BP 98/66 03/31/25 09:31 Pulse Ox 99 03/31/25 09:31 Oxygen Delivery Method Room Air 03/31/25 09:31 BMI result Body Mass Index 24.3 Tobacco/Smoking Status: Tobacco use Status Tobacco use date assessed 03/31/25 03/31/25 09:27 Patient Tobacco Use Status Never used Tobacco 03/31/25 09:27 e-Cigarette/Vaping Use Never Used 03/31/25 09:27 PHQ-9: PHQ-9 Score PHQ-9: Total score 1 03/31/25 09:35 Depression Screening Interpretation: Negative Thrive Assessment: Date of Thrive Assessment Date Thrive assessed 03/31/25 03/31/25 09:27 Currently or been in a relationship where the following occur: No concerns reported Coding Level of Care Code Est Pt Prev Care 18-39y([id number]) Diagnoses Adult general medical exam Z00.00 Cervical cancer screening Z12.4 Other irritable bowel syndrome K58.8 Irritable bowel syndrome type: other Anxiety F41.9 Multiple atypical skin moles D22.9 Laboratory exam ordered as part of routine general medical examination Z00.00 Dyspareunia in female N94.10 Up to date with tetanus vaccination Z92.29 Additional Codes SID-7 Assessment Billing - SID-7 Assessment Tool: SID-7 Assessment 24871 ([id number]) PHQ-9 - 06321 - PHQ-9 Billing: Yes ([id number]) Assessment & Plan Assessment & Plan (1) Adult general medical exam: Onset Date: ~03/31/25 Code(s): Z00.00 - Encounter for general adult medical examination without abnormal findings Category: Medical (2) Cervical cancer screening: Comment: 04/09/21 pap= neg Code(s): Z12.4 - Encounter for screening for malignant neoplasm of cervix Category: Medical (3) IBS (irritable bowel syndrome): Code(s): K58.9 - Irritable bowel syndrome, unspecified Category: Medical Qualifiers: Irritable bowel syndrome type: other Qualified Code(s): K58.8 - Other irritable bowel syndrome (4) Anxiety: Code(s): F41.9 - Anxiety disorder, unspecified Category: Medical (5) Multiple atypical skin moles: Code(s): D22.9 - Melanocytic nevi, unspecified Category: Medical (6) Laboratory exam ordered as part of routine general medical examination: Code(s): Z00.00 - Encounter for general adult medical examination without abnormal findings Category: Medical (7) Dyspareunia in female: Code(s): N94.10 - Unspecified dyspareunia Category: Medical (8) Up to date with tetanus vaccination: Code(s): Z92.29 - Personal history of other drug therapy Category: Medical Plan . Orders: Orders Comprehensive Met. Panel Today Z00.00 - Encounter for general adult medical examination without abnormal findings Ferritin Today Z00.00 - Encounter for general adult medical examination without abnormal findings Lipid Panel Today Z00.00 - Encounter for general adult medical examination without abnormal findings Microalbumin, Random (w Creat) Today Z00.00 - Encounter for general adult medical examination without abnormal findings TSH reflex Free T4 Today Z00.00 - Encounter for general adult medical examination without abnormal findings Complete Blood Count no Diff Today Z00.00 - Encounter for general adult medical examination without abnormal findings Hemoglobin A1c Today Z00.00 - Encounter for general adult medical examination without abnormal findings Vitamin B12 and Folate Today Z00.00 - Encounter for general adult medical examination without abnormal findings Vitamin D 25-OH Total Today Z00.00 - Encounter for general adult medical examination without abnormal findings Referrals Dermatology Referral D22.9 - Melanocytic nevi, unspecified Medications: New epinephrine (EpiPen) for 2 doses 0.3 mg (0.3 mL) IM Q10M PRN 2 ea 1RF anaphylaxis Patient Instructions: Health screenings for women You should visit your health care provider from time to time, even if you are healthy. The purpose of these visits is to: Screen for medical issues Assess your risk for future medical problems Encourage a healthy lifestyle Update vaccinations and other preventive care services Help you get to know your provider in case of an illness Information Even if you feel fine, you should still see your provider for regular checkups. These visits can help you avoid problems in the future. For example, the only way to find out if you have high blood pressure is to have it checked regularly. High blood sugar and high cholesterol levels also may not have any symptoms in the early stages. A simple blood test can check for these conditions. There are specific times when you should see your provider or receive specific health screenings. The [place] Preventive Services Task Force publishes a list of recommended screenings. Below are screening guidelines for women ages 18 to 39. BLOOD PRESSURE SCREENING Your blood pressure should be checked at least once every 3 to 5 years if: Your blood pressure is in the normal range (top number less than 120 mm Hg and bottom number less than 80 mm Hg) You don't have risk factors for high blood pressure Ask your provider if you need your blood pressure checked more often if: The top number is 120 to 129 mm Hg or the bottom number is 70 to 79 mm Hg You have diabetes, heart disease, kidney problems, are overweight, or have certain other health conditions You have a first-degree relative with high blood pressure You are Black You had high blood pressure during a If the top number is 130 mm Hg or greater or the bottom number is 80 mm Hg or greater, this is considered stage 1 hypertension. Schedule an appointment with your provider to learn how you can reduce your blood pressure. Watch for blood pressure screenings in your area. Ask your provider if you can stop in to have your blood pressure checked. BREAST CANCER SCREENING Experts do not agree about the benefits of breast self-exams in finding breast cancer or saving lives. Talk to your provider about what is best for you. A screening mammogram is not recommended for most women under age 40. Your provider may discuss and recommend mammograms, MRI scans, or ultrasounds if you have an increased risk for breast cancer, such as: A mother or sister who had breast cancer at a young age (most often starting screening earlier than the age the close relative was diagnosed) You carry a high-risk genetic marker CERVICAL CANCER SCREENING Cervical cancer screening should start at age 21 years unless your provider advises otherwise. After the first test: Women ages 21 through 29 should have a Pap test every 3 years. Exoprts do not agree on whether HPV testing is recommended for this age group. Women ages 30 through 65 should be screened with either a Pap test every 3 years or the HPV test every 5 years or both tests every 5 years (called cotesting ). Women who have been treated for precancer (cervical dysplasia) should continue to have Pap tests for 20 years after treatment or until age 65, whichever is longer. If you have had your uterus and cervix removed (total hysterectomy), and you have not been diagnosed with cervical cancer or precancer (high grade cervical neoplasia), you do not need cervical cancer screening. CHOLESTEROL SCREENING Cholesterol screening should begin at: Age 45 for women with no known risk factors for coronary heart disease Age 20 for women with known risk factors for coronary heart disease Repeat cholesterol screening should take place: Every 5 years for women with normal cholesterol levels More often if changes occur in lifestyle (including weight gain and diet) More often if you have diabetes, heart disease, kidney problems, or certain other conditions DIABETES SCREENING You should be screened for diabetes starting at age 35 and then repeated every 3 years if you have no risk factors for diabetes. Screening may need to start earlier and be repeated more often if you have other risk factors for diabetes, such as: You have a first degree relative with diabetes. You are overweight or have obesity. You have high blood pressure, prediabetes, or a history of heart disease. Screening for diabetes should be done if you are planning to become and you are overweight and have other risk factors such as high blood pressure. DENTAL EXAM Go to the dentist once or twice every year for an exam and cleaning. Your dentist will evaluate if you need more frequent visits. EYE EXAM Have an eye exam every 5 to 10 years before age 40. If you have vision problems, have an eye exam every 2 years or more often if recommended by your provider. You should have an eye exam that includes an examination of your retina (back of your eye) at least every year if you have diabetes. IMMUNIZATIONS Commonly needed vaccines include: Flu shot: get one every year. COVID-19 vaccine: ask your provider what is best for you. Tetanus-diphtheria and acellular pertussis (Tdap) vaccine: have one at or after age 19 as one of your tetanus-diphtheria vaccines if you did not receive it as an adolescent. Tetanus-diphtheria: have a booster (or Tdap) every 10 years. Varicella vaccine: receive 2 doses if you never had chickenpox or the varicella vaccine. Hepatitis B vaccine: receive 2, 3, or 4 doses, depending on your exact circumstances. Measles, mumps, and rubella (MMR) vaccine: receive 1 to 2 doses if you are not already immune to MMR. Your provider can tell you if you are immune. Ask your provider about the human papillomavirus (HPV) vaccine if: You have not received the HPV vaccine in the past You have not completed the full vaccine series (you should catch up on this shot) Ask your provider if you should receive other immunizations if you have certain health problems that increase your risk for some diseases such as pneumonia. INFECTIOUS DISEASE SCREENING Women who are sexually active should be screened for chlamydia and gonorrhea up until age 25. Women 25 years and older should be screened for chlamydia and gonorrhea if at high risk. Screening for hepatitis C: All adults ages 18 to 79 should get a one-time test for hepatitis C. people should be screened at every . Screening for human immunodeficiency virus (HIV): All people ages 15 to 65 should get a one-time test for HIV. Depending on your lifestyle and medical history, you may also need to be screened for infections such as syphilis and HIV, as well as other infections. PHYSICAL EXAM All adults should visit their provider from time to time, even if they are healthy. The purpose of these visits is to: Screen for disease Assess your risk of future medical problems Encourage a healthy lifestyle Update your vaccinations and other preventive care services Maintain a relationship with a provider in case of an illness Your height, weight, and BMI should be checked at every exam. During your exam, your provider may ask you about: Depression and anxiety Diet and exercise Alcohol and tobacco use Safety issues, such as using seat belts, smoke detectors, and intimate partner violence Your medicines and risk for interactions SKIN SELF-EXAM Your provider may check your skin for signs of skin cancer, especially if you're at high risk, such as if you: Have had skin cancer before Have close relatives with skin cancer Have a weakened immune system OTHER SCREENING Talk with your provider about colon cancer screening if you have a strong family history of colon cancer or polyps, or if you have had inflammatory bowel disease or polyps yourself. Routine bone density screening of women under 40 is not recommended.
[2025-03-31 09:31] VITALS: BP 98/66; PULSE 72; RESP 12; TEMP 36.2; O2SAT 99; BMI 24.3
== END 2025-03-31 09:59 | disposition home or self-care (01) ==
LOC: HO.HMCFM 09:28
PROVIDERS: PCP Family Medicine; Visit Provider Nurse Practitioner Family
DX: Z00.00 Encounter for general adult medical examination without abnormal findings (principal); Z12.4 Encounter for screening for malignant neoplasm of cervix; K58.8 Other irritable bowel syndrome; F41.9 Anxiety disorder, unspecified; D22.9 Melanocytic nevi, unspecified; N94.10 Unspecified dyspareunia; Z92.29 Personal history of other drug therapy

== ENCOUNTER → 2025-03-31 09:25 | Outpatient (BNVA) | payer OTHER, SELFPAY | PROVIDERS: PCP Family Medicine; Visit Provider Nurse Practitioner Family | DX: Z00.00 Encounter for general adult medical examination without abnormal findings (principal); K58.8 Other irritable bowel syndrome; F41.9 Anxiety disorder, unspecified; F32.A Depression, unspecified; D22.9 Melanocytic nevi, unspecified; N94.10 Unspecified dyspareunia; Z92.29 Personal history of other drug therapy; Z13.31 Encounter for screening for depression; Z13.39 Encounter for screening examination for other mental health and behavioral disorders | CPT/HCPCS: 96127 ==